=== PATIENT | male | born 1995 ===

== ENCOUNTER 2021-04-04 13:27 | Emergency (ER) | payer MEDICARE, OTHER ==
[~2021-04-04] VITALS: Ht 170.2 cm; Wt 52.2 kg
[2021-04-04] MEDS ORDERED: ONDANSETRON HCL4 MG PO (13:46)
== END 2021-04-04 17:00 | disposition home or self-care (01) ==
LOC: ED 13:27
DX: G40.909 Epilepsy, unspecified, not intractable, without status epilepticus (principal)
CPT/HCPCS: 80053; 81001; 85025; 99284